=== PATIENT | male | born 1985 | race African-American/Black ===

== ENCOUNTER 2017-03-03 16:28 | Emergency (ER) | payer MEDICAID ==
[~2017-03-03] VITALS: Ht 185.4 cm; Wt 78.0 kg
[2017-03-03 20:21] VITALS: BP 144/98
== END 2017-03-03 20:25 | disposition home or self-care (01) ==
LOC: ER 16:58
DX: K04.7 Periapical abscess without sinus (principal); L03.211 Cellulitis of face; F12.10 Cannabis abuse, uncomplicated
CPT/HCPCS: 99283; Z7610

== ENCOUNTER 2017-03-11 07:24 | Emergency (ER) | payer MEDICAID ==
[~2017-03-11] VITALS: Ht 185.4 cm; Wt 79.0 kg
[2017-03-11 10:38] VITALS: BP 119/77
== END 2017-03-11 10:39 | disposition home or self-care (01) ==
LOC: ER 07:24
DX: K02.9 Dental caries, unspecified (principal); R19.7 Diarrhea, unspecified; R10.9 Unspecified abdominal pain; R11.10 Vomiting, unspecified; F12.10 Cannabis abuse, uncomplicated; Z98.890 Other specified postprocedural states; Z88.1 Allergy status to other antibiotic agents
CPT/HCPCS: 99283